=== PATIENT | female | born 1945 | race African-American/Black ===

== ENCOUNTER 2022-03-07 13:33 | Emergency (ER) | payer OTHER ==
[~2022-03-07] VITALS: Ht 162.6 cm; Wt 75.0 kg
[2022-03-07] MEDS ORDERED: IOHEXOL-350 100 ML BOTTLE ONE (14:23)
[2022-03-07 14:31] LABS: EOSINOPHILS % 0.9 % (0.0-5.0); HEMATOCRIT. 24.2 % (36.0-48.0); HEMOGLOBIN. 7.1 g/dL (12.0-16.0); LYMPHOCYTES % 13.3 % (20.0-50.0); MEAN CORPUSCULAR HEMOGLOBIN 19.4 pg (28.0-32.0); MEAN PLATELET VOLUME 9.6 fl (7.4-10.4); MONOCYTES % 7.8 % (2.0-8.0); PLATELET 275 x1000/uL (130-400); RED BLOOD CELL COUNT 3.66 mill/uL (4.2-5.4)
[2022-03-07 14:41] LABS: CHLORIDE 104 mEq/L (98-107)
[2022-03-07 14:51] LABS: ETHANOL BLOOD < 10 mg/dL
[2022-03-07 14:56] LABS: PLATELET ESTIMATE NORMAL
[2022-03-07] MEDS: ATORVASTATIN CALCIUM 40MG TABLET PO SCH ×2 (16:53→16:59)
[2022-03-07] MEDS: ASPIRIN 325MG EC TABLET PO ONE ×2 (16:53→17:24)
[2022-03-07] MEDS ORDERED: CLOPIDOGREL 75MG TABLET PO ONE (17:00)
[2022-03-07 19:27] LABS: CLARITY URINE CLEAR (CLEAR); COLOR URINE YELLOW (YELLOW); KETONES URINE NEGATIVE (NEGATIVE); LEUKOCYTE ESTERASE URINE 1+ (NEGATIVE); NITRITE URINE NEGATIVE (NEGATIVE); OCCULT BLOOD URINE NEGATIVE (NEGATIVE); PROTEIN URINE NEGATIVE (NEGATIVE); SPECIFIC GRAVITY URINE 1.059 (1.005-1.030); UROBILINOGEN URINE 0.2 E.U./dL (0.2-1.0)
[2022-03-07 19:54] LABS: *AMPHETAMINES SCREEN URINE NEGATIVE (NEGATIVE); *BARBITURATES SCREEN URINE NEGATIVE (NEGATIVE); *BENZODIAZEPINES SCREEN URINE NEGATIVE (NEGATIVE); *COCAINE SCREEN URINE NEGATIVE (NEGATIVE); CANNABINOID URINE SCREEN NEGATIVE (NEGATIVE); METHADONE URINE SCREEN NEGATIVE (NEGATIVE); OPIATES URINE SCREEN NEGATIVE (NEGATIVE); PHENCYCLIDINE URINE SCREEN NEGATIVE (NEGATIVE)
[2022-03-07 19:55] VITALS: BP 177/76
== END 2022-03-07 20:00 | disposition short-term general hospital (02) ==
LOC: ER 13:51 → EDBEDREQSVC 13:54 → EDBEDREQ 16:35 → EDBEDREQSVC 16:35 → EDBEDREQTM 16:35 → ER 20:00 → CANBEDREQ 22:58
DX: I63.9 Cerebral infarction, unspecified (principal); Z20.822 Contact with and (suspected) exposure to COVID-19
CPT/HCPCS: 36415; 70450; 70496; 70498; 71045; 80053; 80305; 80320; 81003; 82962; 84484; 85025; 87426; 93005; 99291; C9803; Q9967; G0480